=== PATIENT | female | born 1975 | race African-American/Black ===

== ENCOUNTER → 2016-11-08 | Outpatient (CLI) | payer OTHER ==
[~2016-11-08] MED LIST: FURO-69 PO; GABA-586 PO; IBUP200T58 PO
--- NOTE | 2016-11-08 08:34 | RAD ---
Abdominal ultrasound, 11/08/2016: History: Elevated liver function test The gallbladder is within normal limits in size. There is no sonographic evidence of cholelithiasis. The gallbladder gallego are not thickened. No bile duct dilatation is seen. The hepatic echogenicity is generally increased, most due to fatty change. No hepatic mass is evident. The pancreatic body is unremarkable. Other portions of the pancreas were obscured by overlying bowel. The spleen is of normal size. No renal abnormality is detected. The abdominal aorta and inferior vena cava are unremarkable. IMPRESSION: 1. Increased hepatic echogenicity suggesting hepatic steatosis. 2. No acute abdominal abnormality is detected.
== END | disposition home or self-care (01) ==
LOC: US 07:06
PROVIDERS: ATTEND Nurse Practitioner Occupational Health
DX: R74.8 Abnormal levels of other serum enzymes (principal)
CPT/HCPCS: 76700

== ENCOUNTER → 2017-02-10 | Outpatient (CLI) | payer OTHER ==
--- NOTE | 2017-02-10 09:13 | KCIC ---
Ultrasound of the abdomen without contrast 02/10/2017 CLINICAL HISTORY: Elevated liver function tests and abdominal pain. TECHNIQUE: A real-time ultrasound examination of the abdomen was performed. Multiple images were obtained. FINDINGS: The gallbladder is well-distended. No gallstones are visualized. The gallbladder wall thickness is within normal limits. No pericholecystic fluid is seen. The common bile duct measures 5 mm in diameter which is within normal limits. The liver is normal in size measuring 14.7 cm in length. Increased echogenicity of the liver parenchyma is seen consistent with mild fatty infiltration. No focal abnormality of the liver is noted. The spleen, visualized portions of the pancreas and kidneys are within normal limits. The abdominal aorta is poorly visualized due to overlying bowel gas. The visualized portions of the abdominal aorta taper normally. The inferior vena cava is not well-visualized due to overlying bowel gas. No free fluid is seen. IMPRESSION: Fatty infiltration of the liver. Otherwise negative study. Electronically signed by: Adrián Briones MD (02/10/2017 9:10 AM) [id number]
== END | disposition home or self-care (01) ==
LOC: KCIC US 07:43
PROVIDERS: ATTEND Nurse Practitioner Occupational Health
DX: K76.0 Fatty (change of) liver, not elsewhere classified (principal)
CPT/HCPCS: 76700